=== PATIENT | male | born 1985 | race Caucasian/White ===

== ENCOUNTER 2017-12-28 17:21 | Emergency (ER) | payer MEDICAID ==
[2017-12-28] MEDS: SILVER SULFADIAZINE 1% 25 GM CR TOP (19:03)
[2017-12-28] MEDS: morphine 4 MG/ML VIAL IM (19:04)
[2017-12-28] MEDS: ONDANSETRON (ODT) 4 MG TAB ODT (19:04)
[2017-12-28] MEDS: DIPHTH/TET/ACEL PERTUSS (ADULT) 0.5 ML VIAL IM* (19:05)
== END 2017-12-28 20:11 | disposition home or self-care (01) ==
LOC: FTE 17:21
DX: T21.22XA Burn of second degree of abdominal wall, initial encounter (principal); S89.91XA Unspecified injury of right lower leg, initial encounter; W17.89XA Other fall from one level to another, initial encounter; Y92.9 Unspecified place or not applicable; Z23 Encounter for immunization
CPT/HCPCS: 16020; 72100; 73562; 73590; 73630; 90471; 90715; 96372; 99284-25

== ENCOUNTER 2018-04-12 20:18 | Emergency (ER) | payer MEDICAID | END 2018-04-12 23:29 | disposition home or self-care (01) | LOC: FTE 20:18 | DX: M54.5 Low back pain (principal); R20.2 Paresthesia of skin; R40.2412 Glasgow coma scale score 13-15, at arrival to emergency department | CPT/HCPCS: 72100; 99283-25 ==